=== PATIENT | male | born 1970 | race Caucasian/White ===

== ENCOUNTER → 2016-11-30 | Outpatient (CLI) | payer BC ==
--- NOTE | 2016-11-30 12:46 | FL ---
Barium swallow HISTORY: Dysphagia Patient was given high density barium to drink. Swallowing mechanism is normal. There is no extrinsic or intrinsic esophageal lesion. Findings of fel ine esophagus are noted. There is no obstruction to flow. No gastroesophageal reflux or hiatal hernia . IMPRESSION: Unremarkable exam, feline esophagus
== END | disposition home or self-care (01) ==
LOC: RADFLWHC 10:43
PROVIDERS: ATTEND Family Medicine
DX: R13.10 Dysphagia, unspecified (principal)
CPT/HCPCS: 74220

== ENCOUNTER 2019-06-03 10:59 | Day surgery (SDC) | payer BC ==
[2019-05-30 08:55] VITALS: BMI 36.1
[~2019-06-03 10:59] MED LIST: LACTATED RINGERS 1,000 ML IV SCH; LIDOCAINE 1% 20 ML VIAL (10MG/ML) FOR IV START INTRADERMA PRN
[2019-06-03 11:15] VITALS: TEMP 97.8
[2019-06-03] MEDS ORDERED: LACTATED RINGERS 1,000 ML IV ONE (11:17)
[2019-06-03] MEDS ORDERED: PROPOFOL 10 MG/ML 20 ML VIAL IV ONE (11:38)
[2019-06-03] MEDS ORDERED: LIDOCAINE 1% INJ 10MG/ML (20 ML MDV) ONE (11:38)
--- NOTE | 2019-06-03 12:50 | P.PCN ---
Date of Procedure: 06/03/19 Description of Procedure: Brief history: Patient is a pleasant scheduled for an elective upper endoscopy as well as colonoscopy as a part of evaluation of symptoms of melena, hematochezia and GI bleed. He reports taking a lot of Motrin due to knee pain which time he had noticed dark-colored stool. He also reports intermittent episodes of mucus discharge as well as bright red blood per rectum. No prior colonoscopy reported. Procedure performed: Esophagogastroduodenoscopy with biopsy Colonoscopy with polypectomy Estimated blood loss: Minimal. Preoperative diagnosis: Melena, esophageal dysphagia, hematochezia, GI bleeding, no prior colonoscopy Anesthesia: [facility] [place] Procedure: After informed consent was obtained from the patient was brought into the endoscopy unit and IV sedation was administered by anesthesia under continuous monitoring. Initially upper endoscopy was done. The Olympus GF 190 video endoscope was inserted inserted into the mouth and esophagus intubated without any difficulty and was gradually advanced into the stomach and duodenum and carefully examined. The bulb and second part of the duodenum appeared normal, except for some mild scattered erythema suggestive of mild duodenitis with biopsies taken. The scope was then withdrawn into the stomach adequately in sufflated with air and upon careful examination the antrum and body, cardia and fundus appeared normal, except for some mild punctate erythema in the antrum and body suggestive of mild gastritis with biopsies taken. The scope was then withdrawn into the esophagus. The GE junction was located at 36 cm to the incisors. It appeared regular with no erythema erosions or ulcerations. Rest of the esophagus appeared normal, with mid esophageal biopsies taken due to dysphagia. Patient tolerated the procedure well. At this time the patient continued to remain sedation. Initial digital rectal examination was normal. Olympus CF 190 video colonoscope was then inserted into the rectum and gradually advanced to the cecum without any difficulty. Careful examination was performed as the scope was gradually being withdrawn. The prep was good. The cecum, ascending colon, transverse colon, descending colon, sigmoid colon and rectum appeared normal. An 8 mm sessile descending colon polyp was seen and removed with hot snare polypectomy. A large 13 mm sigmoid colon polyp was removed with hot snare polypectomy in piecemeal fashion. Retroflexion was performed in the rectum and no lesions were noted. Patient tolerated the procedure well. Impression: 1. Mild gastritis antrum and body, biopsied. Mild duodenitis biopsied. Mid esophageal biopsies. 2. 2 large polyp removed from the descending colon and sigmoid colon with hot snare polypectomy, sigmoid colon polyp was larger and removed in piecemeal fashion. Recommendations: Findings of this examination were discussed with the patient as well as his . Okay to resume diet. Await pathology from polypectomies. Anticipate repeat colonoscopy in one year due to piecemeal resection of polyps.
[2019-06-03 13:10] VITALS: BP 120/75; PULSE 66; RESP 16
== END 2019-06-03 13:30 | disposition home or self-care (01) ==
LOC: ORWHC2ENDO 10:59
PROVIDERS: ATTEND Internal Medicine
DX: D12.4 Benign neoplasm of descending colon (principal); D12.5 Benign neoplasm of sigmoid colon; K29.70 Gastritis, unspecified, without bleeding; K29.80 Duodenitis without bleeding; K29.50 Unspecified chronic gastritis without bleeding; Z79.1 Long term (current) use of non-steroidal anti-inflammatories (NSAID); Z88.5 Allergy status to narcotic agent; Z79.899 Other long term (current) drug therapy
CPT/HCPCS: 88305; 88312; 45385; 43239; J2001; J2704

== ENCOUNTER 2021-06-30 16:02 | Emergency (ER) | payer BC ==
[2021-06-30 16:10] VITALS: TEMP 97.7
[2021-06-30 16:39] LABS: Basophils # (A) 0.1 k/uL (0-0.2); Basophils % (A) 1 %; Eosinophils # (A) 0.1 k/uL (0-0.7); Eosinophils % (A) 2 %; HCT 46.8 % (39.0-53.0); HGB 16.5 gm/dL (13.0-17.5); Hyperchromasia Slight; Lymphocytes # (A) 1.5 k/uL (1.0-4.8); Lymphocytes % (A) 22 %; MCH 31.9 pg (25.0-35.0); MCHC 35.2 g/dL (31.0-37.0); MCV 90.7 fL (80.0-100.0); Mean Platelet Volume 8.5; Monocytes # (A) 0.3 k/uL (0-1.0); Monocytes % (A) 4 %; Neutrophils # (A) 4.5 k/uL (1.3-7.7); Neutrophils % (A) 68 %; Platelet Count 167 k/uL (150-450); RBC 5.16 m/uL (4.30-5.90); RDW 13.4 % (11.5-15.5); WBC 6.5 k/uL (3.8-10.6)
[2021-06-30 16:48] LABS: Partial Thromboplastin Time 25.4 sec (22.0-30.0); Prothrombin Time 10.3 sec (9.0-12.0)
--- NOTE | 2021-06-30 16:50 | XR ---
EXAMINATION TYPE: XR chest 2V DATE OF EXAM: 06/30/2021 COMPARISON: NONE HISTORY: 51 years Male. STUDY INDICATION GIVEN: Chest Pain . TECHNIQUE: Frontal lateral chest radiographs IMPRESSION: Patchy opacities in the right lower lobe concerning for pneumonia. No pneumothorax or pleural effusion. Normal cardiac mediastinal silhouette. No acute osseous abnormality. Radiopaque densities over the left axillary region external to the patient. Clinical correlation kong mmended
[2021-06-30 16:51] LABS: ALT 18 U/L (4-49); AST 28 U/L (17-59); African American GFR (CKD) >90 (>60 ml/min/1.73 sqM); Albumin 4.5 g/dL (3.5-5.0); Alkaline Phosphatase 63 U/L (38-126); Anion Gap 10 mmol/L; Blood Urea Nitrogen 23 mg/dL (9-20); Calcium 9.4 mg/dL (8.4-10.2); Carbon Dioxide 22 mmol/L (22-30); Chloride 106 mmol/L (98-107); Glucose 134 mg/dL (74-99); Magnesium 2.1 mg/dL (1.6-2.3); Non-African American GFR(CKD) >90 (>60 ml/min/1.73 sqM); Potassium 3.8 mmol/L (3.5-5.1); Sodium 138 mmol/L (137-145); Total Bilirubin 0.9 mg/dL (0.2-1.3); Total Protein 7.5 g/dL (6.3-8.2)
[2021-06-30] MEDS ORDERED: KETOROLAC 15 MG/ML 1 ML VIAL IM STA (17:21)
[2021-06-30] MEDS ORDERED: ASPIRIN 81 MG PO STA (17:21)
--- NOTE | 2021-06-30 18:32 | ED ---
General Adult HPI - General Chief complaint: Chest Pain Stated complaint: Chest Pain/Lightheaded Time Seen by Provider: 06/30/21 16:56 Source: family Mode of arrival: ambulatory Limitations: no limitations - History of Present Illness Initial comments: Patient is a 51-year-old male with past medical history remarkable for hypertension who presents emergency Department complaining of chest pain. Patient was evaluated when he was placed in a room. Workup was initially started by nursing staff. He describes the chest pain as a pressure-like sensation substernally. It comes and goes but he had an episode earlier when she did become mildly diaphoretic at work. He also endorses some mild lightheadedness. He wanted to be evaluated after calling his doctor. He denies any current shortness of breath, abdominal pain, nausea, vomiting. He does en dorse improvement in the chest pressure, however it is still present. Denies any lightheadedness currently, weakness, numbness. He was vaccinated for COVID- 19. He has no other acute complaints at this time. The chest pressure does not radiate. No history of blood clots and patient is not on blood thinners. - Related Data Home Medications Medication Instructions Recorded Confirmed Losartan Potassium 100 mg PO HS@1800 05/30/19 06/30/21 ALPRAZolam [Xanax] 0.5 mg PO HS PRN 06/30/21 06/30/21 Metoprolol Tartrate [Lopressor] 50 mg PO HS@1800 06/30/21 06/30/21 Allergies Allergy/AdvReac Type Severity Reaction Status Date / Time lisinopril AdvReac Cough Verified 06/30/21 17:22 morphine AdvReac Itching Verified 06/30/21 17:22 Review of Systems ROS Statement: Those systems with pertinent positive or pertinent negative responses have been documented in the HPI. Review of Systems: CONST: Denies fever EYES: Denies blurry vision ENT: Denies nasal congestion C/V: Endorses chest pain RESP: Denies shortness of breath GI: Denies abdominal pain : Denies dysuria SKIN: Denies rash. MSK: Denies joint pain. NEURO: Denies headache ROS Other: All systems not noted in ROS Statement are negative. Past Medical History Past Medical History: Hypertension, Osteoarthritis (OA) Additional Past Medical History / Comment(s): feels like food gets stuck in my throat and pos occult stool and cologuard History of Any Multi-Drug Resistant Organisms: None Reported Past Surgical History: Orthopedic Surgery Additional Past Surgical History / Comment(s): lt meniscus arthroscopy repair,repair of fluid bulging back lt eye,lt rot cuff repair,rt foot ORIF Past Anesthesia/Blood Transfusion Reactions: No Reported Reaction Smoking Status: Never smoker Past Alcohol Use History: Occasional Past Drug Use History: None Reported - Past Family History Mother Family Medical History: No Reported History Father Additional Family Medical History / Comment(s): lump removed from breast General Exam - General Exam Comments Initial Comments: General: Appears in no acute distress. HEAD: Normal with no signs of head trauma. EYES: PERRLA, EOMI, conjunctiva normal, no discharge. ENT: Hearing grossly intact, normal oropharynx. RESPIRATORY: Clear breath sounds bilaterally. No wheezes, rales, or rhonchi. C/V: Regular rate and rhythm. S1 and S2 auscultated, no edema, peripheral pulses 2+ and intact throughout. Pain is nonreproducible on palpation. ABD: Abd is soft, nontender, nondistended EXT: Normal range of motion, no obvious deformity SKIN: No rashes or lesions observed on exposed skin. NEURO: Alert and oriented x 4. Cranial nerves II-XII intact. No focal sensory or strength deficits. Limitations: no limitations Course Vital Signs 06/30/21 06/30/21 16:07 18:57 Temperature 97.7 F Pulse Rate 101 H 71 Respiratory 19 18 Rate Blood Pressure 128/81 121/92 O2 Sat by Pulse 98 96 Oximetry Medical Decision Making - Medical Decision Making Based on the patient's presentation and physical exam, I'm concerned for possible cardiac etiology for his current chest pain. Therefore we will obtain a cardiac workup including troponin, EKG, chest x-ray. He'll be sent directly treated with aspirin as well as Toradol. Due to the atypical nature the pain, we'll also obtain a d-dimer 12 possibility of pulmonary embolism. His well score for PE is low. He was in agreement with this plan. Patient's laboratory studies were initially drawn by triage and were back prior to me evaluating the patient. EKG showed no signs of acute ischemia. Chest x- ray shows no acute cardiopulmonary process and the possibility of a right lower lobe pneumonia versus atelectasis with clinical correlation. I discussed this with the patient and he is having no symptoms including denying any dyspnea, cough, fevers, chills. We therefore agreed that we'll not start antibiotics as he does not appear to have a pneumonia clinically. I discussed with them on my evaluation that I would like to obtain additional troponin which will therefore be greater than 4 hours after onset of symptoms. D-dimer was also be obtained. He was in agreement this plan. D-dimer was within normal limits. Second troponin was also negative. On reevaluation, patient's chest pain is completely resolved. He would like to go home. Patient's heart score is low at 2. I do believe it is safe to discharge the patient home. . I instructed the patient to follow up with their PCP in the next 3 days. I r ecommended cardiology follow-up as well, and he will follow up with his known training lead. I explained that the patient should return to the emergency department if they experience any worsening symptoms. Strict return precautions were discussed with the patient. The patient expressed understanding of these instructions. I answered all questions that the patient had. The patient was discharged home in good condition with their prescriptions and follow up information. - Lab Data Result diagrams: 06/30/21 16:11 06/30/21 16:11 Lab Results 06/30/21 06/30/21 06/30/21 Range/Units 16:11 16:11 16:11 WBC 6.5 (3.8-10.6) k/uL RBC 5.16 (4.30-5.90) m/uL Hgb 16.5 (13.0-17.5) gm/dL Hct 46.8 (39.0-53.0) % MCV 90.7 (80.0-100.0) fL MCH 31.9 (25.0-35.0) pg MCHC 35.2 (31.0-37.0) g/dL RDW 13.4 (11.5-15.5) % Plt Count 167 (150-450) k/uL MPV 8.5 Neutrophils % 68 % Lymphocytes % 22 % Monocytes % 4 % Eosinophils % 2 % Basophils % 1 % Neutrophils # 4.5 (1.3-7.7) k/uL Lymphocytes # 1.5 (1.0-4.8) k/uL Monocytes # 0.3 (0-1.0) k/uL Eosinophils # 0.1 (0-0.7) k/uL Basophils # 0.1 (0-0.2) k/uL Hyperchromasia Slight PT 10.3 (9.0-12.0) sec INR 1.0 (<1.2) APTT 25.4 (22.0-30.0) sec D-Dimer (<0.60) mg/L FEU Sodium 138 (137-145) mmol/L Potassium 3.8 (3.5-5.1) mmol/L Chloride 106 (98-107) mmol/L Carbon Dioxide 22 (22-30) mmol/L Anion Gap 10 mmol/L BUN 23 H (9-20) mg/dL Creatinine 0.93 (0.66-1.25) mg/dL Est GFR (CKD-EPI)AfAm >90 (>60 ml/min/1.73 sqM) Est GFR (CKD-EPI)NonAf >90 (>60 ml/min/1.73 sqM) Glucose 134 H (74-99) mg/dL Calcium 9.4 (8.4-10.2) mg/dL Magnesium 2.1 (1.6-2.3) mg/dL Total Bilirubin 0.9 (0.2-1.3) mg/dL AST 28 (17-59) U/L ALT 18 (4-49) U/L Alkaline Phosphatase 63 (38-126) U/L Troponin I (0.000-0.034) ng/mL Total Protein 7.5 (6.3-8.2) g/dL Albumin 4.5 (3.5-5.0) g/dL 06/30/21 06/30/21 06/30/21 Range/Units 16:11 16:11 17:17 WBC (3.8-10.6) k/uL RBC (4.30-5.90) m/uL Hgb (13.0-17.5) gm/dL Hct (39.0-53.0) % MCV (80.0-100.0) fL MCH (25.0-35.0) pg MCHC (31.0-37.0) g/dL RDW (11.5-15.5) % Plt Count (150-450) k/uL MPV Neutrophils % % Lymphocytes % % Monocytes % % Eosinophils % % Basophils % % Neutrophils # (1.3-7.7) k/uL Lymphocytes # (1.0-4.8) k/uL Monocytes # (0-1.0) k/uL Eosinophils # (0-0.7) k/uL Basophils # (0-0.2) k/uL Hyperchromasia PT (9.0-12.0) sec INR (<1.2) APTT (22.0-30.0) sec D-Dimer 0.37 (<0.60) mg/L FEU Sodium (137-145) mmol/L Potassium (3.5-5.1) mmol/L Chloride (98-107) mmol/L Carbon Dioxide (22-30) mmol/L Anion Gap mmol/L BUN (9-20) mg/dL Creatinine (0.66-1.25) mg/dL Est GFR (CKD-EPI)AfAm (>60 ml/min/1.73 sqM) Est GFR (CKD-EPI)NonAf (>60 ml/min/1.73 sqM) Glucose (74-99) mg/dL Calcium (8.4-10.2) mg/dL Magnesium (1.6-2.3) mg/dL Total Bilirubin (0.2-1.3) mg/dL AST (17-59) U/L ALT (4-49) U/L Alkaline Phosphatase (38-126) U/L Troponin I <0.012 <0.012 (0.000-0.034) ng/mL Total Protein (6.3-8.2) g/dL Albumin (3.5-5.0) g/dL - EKG Data -: EKG Interpreted by Me EKG Comments: 12-lead Electrocardiogram Interpretation Note EKG was reviewed and interpreted by myself. 12-lead ECG performed at 1611 is interpreted by me as revealing normal sinus rhythm at a rate of 86 beats per minute. [place] is normal. [place] interval 160 ms, QRS duration is 82 ms, QTc is 411 ms.. There were no ST or T wave abnormalities to suggest myocardial ischemia or injury. R wave progression across the precordium was satisfactory. By my interpretation this EKG is non-diagnostic for acute ischemia. Disposition Clinical Impression: Chest pain of unknown etiology Disposition: HOME SELF-CARE Condition: Good Instructions (If sedation given, give patient instructions): Chest Pain (ED) Is patient prescribed a controlled substance at d/c from ED?: No Referrals: Ajay Greenberg MD [Primary Care Provider] - 1-2 days
[2021-06-30 18:58] VITALS: BP 121/92; PULSE 71; RESP 18
== END 2021-06-30 18:57 | disposition home or self-care (01) ==
LOC: EC 16:02
DX: R07.89 Other chest pain (principal); R42 Dizziness and giddiness; I10 Essential (primary) hypertension; Z88.8 Allergy status to other drugs, medicaments and biological substances; Z88.5 Allergy status to narcotic agent
CPT/HCPCS: 36415; 93005; 85379; 80053; 83735; 84484; 85025; 85610; 85730; 71046; 96372; 99285; J1885

== ENCOUNTER → 2021-07-26 | Outpatient (CLI) | payer BC ==
--- NOTE | 2021-07-26 13:23 | P.STRESS ---
- Stress Test Note Stress Test Results/Findings: Exam Performed: stress test Exam Date: 07/26/21 Reason for Exam: Chest Pain Height: 5 ft 7 in Weight: 104.326 kg Protocol: Manuel Stage: 3 Duration of Exercise: 9:19 Resting Heart Rate: 83 Resting Blood Pressure: 136/98 Maximum Achieved Heart Rate: 150 Maximum Achieved Blood Pressure: 178/92 85% PMHR: 142 100% PMHR: 167 METS: 10.7 Technologist Comment: Stress Test Results/Findings: Patient underwent exercise stress EKG with a Manuel protocol treadmill stress test. Patient exercised into Stage 3 for a total of 9 minutes and 19 seconds reaching a total of 10.7 METS. Patient's maximum heart rate was 150 which represented 90 % age-predicted maximum heart rate. Stress EKG findings: At baseline patient's EKG showed normal sinus rhythm, normal axis, no significant ST or T wave abnormalities. At peak exercise, EKG showed nonspecific 0.[address] depressions in the inferior and lateral leads which is nondiagnostic. Conclusions: 1. Normal EKG response to exercise without evidence of inducible ischemia. 2. Good exercise capacity.
== END | disposition home or self-care (01) ==
LOC: RADNMMAIN 08:24
PROVIDERS: ATTEND Family Medicine
DX: R07.9 Chest pain, unspecified (principal); J18.9 Pneumonia, unspecified organism
CPT/HCPCS: 93017

== ENCOUNTER → 2021-08-04 | Outpatient (CLI) | payer BC ==
--- NOTE | 2021-08-04 08:37 | US ---
EXAMINATION TYPE: US carotid duplex BILAT DATE OF EXAM: 08/04/2021 COMPARISON: NONE CLINICAL HISTORY: 51-year-old male R42 lightheadedness. Intermittent lightheadedness x 1 month TECHNIQUE: Carotid duplex ultrasound examination. Indirect Doppler criteria was utilized. FINDINGS: EXAM MEASUREMENTS: RIGHT: Peak Systolic Velocity (PSV) cm/sec ----- Right CCA: 82.0 ----- Right ICA: 65.7 ----- Right ECA: 50.8 ICA/CCA ratio: 0.8 RIGHT: End Diastole cm/sec ----- Right CCA: 30.3 ----- Right ICA: 34.6 ----- Right ECA: 11.5 LEFT: Peak Systolic Velocity (PSV) cm/sec ----- Left CCA: 63.4 ----- Left ICA: 67.5 ----- Left ECA: 69.9 ICA/CCA ratio: 1.1 LEFT: End Diastole cm/sec ----- Left CCA: 23.2 ----- Left ICA: 36.6 ----- Left ECA: 9.4 VERTEBRALS (direction of flow): Right Vertebral: Antegrade Left Vertebral: Antegrade Rhythm: Normal [employer] notes: No significant stenosis IMPRESSION: No hemodynamically significant internal carotid artery stenosis on either side. Criteria for Assigning % of Stenosis / Diameter reduction (Estimation based on the indirect measurements of the internal carotid artery velocities (ICA PSV). 1. Normal (no stenosis)=ICA PSV < 125 cm/s: ratio < 2.0: ICA EDV<40 cm/s. 2. Less than 50% stenosis=ICA PSV < 125 cm/s: ratio < 2.0: ICA EDV<40 cm/s. 3. 50 to 69% stenosis=ICA PSV of 125 to 230 cm/s: ration 2.0 ? 4.0: ICA EDV 40-100 cm/s. 4. Greater than 70% stenosis to near occlusion= ICA PSV > 230 cm/s: ratio > 4.0: ICA EDV > 100 cm/s. 5. Near occlusion= ICA PSV velocities may be low or undetectable: variable ratio and ICA EDV. 6. Total occlusion=unable to detect flow.
== END | disposition home or self-care (01) ==
LOC: RADUSWWP 06:42
PROVIDERS: ATTEND Family Medicine
DX: R42 Dizziness and giddiness (principal)
CPT/HCPCS: 93225; 93226; 93880

== ENCOUNTER 2021-12-31 09:01 | Day surgery (SDC) | payer BC ==
[2021-12-29 10:00] VITALS: BMI 34.4
[~2021-12-31 09:01] MED LIST changes: -LIDOCAINE 1% 20 ML VIAL (10MG/ML) FOR IV START INTRADERMA PRN
[2021-12-31] MEDS ORDERED: PROPOFOL 10 MG/ML 20 ML VIAL IV ONE (10:45)
--- NOTE | 2021-12-31 11:11 | P.PCN ---
Date of Procedure: 12/31/21 Procedure(s) Performed: BRIEF HISTORY: Patient is a 51-year-old pleasant male scheduled for an elective colonoscopy as a part of evaluation of prior history of colon polyps. Last colonoscopy was 3 years ago and was noted to have tubular adenoma PROCEDURE PERFORMED: Colonoscopy. PREOPERATIVE DIAGNOSIS: History of colon polyps. IV sedation per Anesthesia. PROCEDURE: After informed consent was obtained, the patient, was brought into the endoscopy unit. IV sedation was administered by Anesthesia under continuous monitoring. Digital rectal examination was normal. Initially the Olympus CF-160 flexible video colonoscope was then inserted in the rectum, gradually advanced into the cecum without any difficulty. Careful examination was performed as the scope was gradually being withdrawn. Ileocecal valve and the appendiceal orifice were visualized and appeared normal. Prep was excellent. Mucosa of the cecum, ascending colon, transverse colon, descending colon, sigmoid colon, and rectum appeared normal. Retroflexion was performed in the rectum and no lesions were seen. The patient tolerated the procedure well. IMPRESSION: Normal-appearing colon from rectum to cecum with no evidence of colorectal neoplasia . RECOMMENDATIONS: Findings of this examination were discussed with the patient .as well as his family. He was advised to have a repeat colonoscopy in 5 years.
[2021-12-31 12:20] VITALS: BP 108/77; PULSE 63; RESP 14
== END 2021-12-31 11:50 | disposition home or self-care (01) ==
LOC: ORWHC2ENDO 09:01
PROVIDERS: ATTEND Internal Medicine Gastroenterology
DX: Z12.11 Encounter for screening for malignant neoplasm of colon (principal); Z86.010 Personal history of colon polyps; I10 Essential (primary) hypertension; Z79.899 Other long term (current) drug therapy
CPT/HCPCS: J2704; G0105; 45378

== ENCOUNTER → 2024-11-27 | Outpatient (CLI) | payer BC ==
--- NOTE | 2024-11-27 10:39 | FL ---
EXAMINATION TYPE: FL barium swallow DATE OF EXAM: 11/27/2024 COMPARISON: Prior esophagram November 30, 2016 CLINICAL INDICATION: Male, 54 years old with history of R13.10 DYSPHAGIA, UNSPECIFIED, worsening dysp hagia mid chest over several years. TECHNIQUE: A double contrast esophagram is performed utilizing air and barium. A total of 51 second s of fluoroscopic time was utilized during procedure and 70 images obtained. Total DAP = 1910.65. FINDINGS: The esophagus shows adequate motility and emptying into the stomach. No evidence of fixed hiatal hernia or stricture noted. At the mid to the distal esophageal level over a moderate length th ere is irregularity in the mucosa with a nodular type appearance almost shaggy type esophagus. No sig nificant gastroesophageal reflux was seen during real time performance of this study. IMPRESSION: Mucosal abnormalities suspected mid to distal esophagus. An atypical esophagitis needs t o be considered. Consider endoscopy evaluation to better evaluate and characterize. [facility], , 11/27/2024 10:36 AM
== END | disposition home or self-care (01) ==
LOC: RADFLMAIN 09:35
PROVIDERS: ATTEND Family Medicine
DX: R13.10 Dysphagia, unspecified (principal)
CPT/HCPCS: 74220

== ENCOUNTER → 2025-02-14 | Outpatient (CLI) | payer BC ==
--- NOTE | 2025-02-14 08:44 | MR ---
EXAMINATION TYPE: MR Prostate wo/w con DATE OF EXAM: 02/14/2025 8:13 AM COMPARISON: None. CLINICAL INDICATION: Male, 54 years old with history of R97.20 elevated PSA; Elevated PSA TECHNIQUE: Multi-planar, multi-sequence imaging of the pelvis is performed prior to and following the uncomplicated administration of bolus intravenous gadolinium. IV Contrast: 11 mL Gadobutrol Interpretive Criteria: PI-RADS v2.1 SERUM PSA: 01/2024=3.95 10/2024=4.880 SURGICAL PATHOLOGY: No data available. FINDINGS: Prostatic dimensions: 4.9 x 5.7 x 4.5 cm. Ellipsoid Volume:65.81 (PSA density=0.07 ng/mL/mL) CENTRAL GLAND (Central and Transition Zones/CZ+TZ): Multiple bilateral, heterogenous appearing hypertrophic stromal nodules, without suspicious lesion. M edian lobe hypertrophy with protrusion into the base of the bladder. (PI-RADS 2) PERIPHERAL ZONE (PZ): Anterior left BPH nodule which is extruded towards the apex peripheral zone anteriorly Bilateral line ar, indistinct wedgelike areas of low ADC, and low T2 signal, No evidence of masslike abnormality, or localized perfusional hypervascularity, to further suggest a focus of clinically significant prostat e cancer. (PI-RADS 2) SEMINAL VESICLES (SV): Symmetric and unremarkable. PERIPROSTATIC TISSUES: Unremarkable. LYMPH NODES: No enlarged pelvic lymph node. REMAINING PELVIS: Bladder wall is within normal limits given distention. No abnormal free or organized intrapelvic fluid collection. No pathologic bowel dilation or mural thickening. No hernia visualized OSSEOUS STRUCTURES: No suspicious osseous abnormality. IMPRESSION: 1. No specific features for high-risk prostate cancer. Maximum PI-RADS score: 2. 2. Moderate BPH, estimated gland volume 65.81 (PSA density=0.07 ng/mL/mL). 3. No suspicious osseous lesion. No lymphadenopathy. No evidence of prostate adenocarcinoma involving the periprostatic tissues. [facility], , 02/14/2025 8:42 AM
== END | disposition home or self-care (01) ==
LOC: RADMRIMAIN 05:42
PROVIDERS: ATTEND Urology
DX: N40.0 Benign prostatic hyperplasia without lower urinary tract symptoms (principal); R97.20 Elevated prostate specific antigen [PSA]
CPT/HCPCS: 72197; A9585

== ENCOUNTER 2025-03-12 10:46 | Day surgery (SDC) | payer BC ==
[2025-03-10 15:32] VITALS: BMI 37.7
[2025-03-12 11:06] VITALS: TEMP 97.2
[2025-03-12] MEDS: LACTATED RINGERS 1,000 ML IV SCH (11:13)
[2025-03-12] MEDS: IV FLUID CONTINUATION 1,000 ML IV ONE (11:13)
[2025-03-12] MEDS ORDERED: LIDOCAINE 1% INJ 10MG/ML (20 ML MDV) ONE (12:34)
[2025-03-12] MEDS ORDERED: PROPOFOL 10 MG/ML 20 ML VIAL IV ONE (12:34)
--- NOTE | 2025-03-12 12:49 | P.PCN ---
Date of Procedure: 03/12/25 Procedure(s) Performed: BRIEF HISTORY: Patient is a 54-year-old, pleasant, white man scheduled for an upper endoscopy as a part of evaluation of progressive dysphagia to solids and liquids for the last several years duration. Patient does admit to getting worse with occasional choking episodes and bouts of regurgitation.. PROCEDURE PERFORMED: Esophagogastroduodenoscopy with balloon dilation and biopsy. PREOPERATIVE DIAGNOSIS: Dysphagia to solids and liquids of several years. IV sedation per anesthesia. PROCEDURE: After informed consent was obtained, the patient was brought into the endoscopy unit. IV sedation was administered by Anesthesia under continuous monitoring. Initially the Olympus GIF-140 video endoscope was inserted into the mouth. Esophagus intubated without any difficulty. It was gradually advanced into the stomach and duodenum and carefully examined. The bulb and the second part of the duodenum appeared normal. The scope at this time was withdrawn to the stomach, adequately insufflated with air, and upon careful examination, mucosa of the antrum, body, cardia and the fundus appeared normal. The scope was then withdrawn into the esophagus. Small hiatal hernia noted. The GE junction was located at 41 cm from the incisors. There was a small hiatal hernia noted. Distal esophageal Schatzki's ring identified that was dilated using 20 mm TTS balloon for 20 seconds. There was brisk oozing identified at the site of mucosal tear and hence further dilation was not performed. The mucosa of the mid and distal esophagus had thickened esophageal folds with somewhat dilated appearing esophagus and multiple biopsies were done to evaluate for eosinophilic esophagitis. The proximal esophagus appeared normal. Also there is a couple of erosions noted in the distal esophagus consistent with LA grade B reflux esophagitis. And the patient tolerated the procedure well. IMPRESSION: 1. Distal esophageal Schatzki's ring status post balloon dilation using 20 mm TTS balloon for 20 seconds. 2. Thickened esophageal folds in the mid and distal esophagus with slightly d ilated appearing esophagus status post multiple biopsies to rule out eosinophilic esophagitis. 3. Linear erosions in the distal esophagus consistent with LA grade B reflux esophagitis. RECOMMENDATIONS: The findings of this examination were discussed with the patient as well as his family. He was advised to remain on clear liquids for 2 hours.. Follow-up in the office in 2 weeks. Start on omeprazole 40 mg daily and follow antireflux measures..
[2025-03-12 13:41] VITALS: BP 127/74; PULSE 74; RESP 17
== END 2025-03-12 13:36 | disposition home or self-care (01) ==
LOC: ORWHC2ENDO 10:46
PROVIDERS: ATTEND Internal Medicine Gastroenterology
DX: K22.2 Esophageal obstruction (principal); D72.10 Eosinophilia, unspecified; I10 Essential (primary) hypertension; Z89.232 Acquired absence of left shoulder; Z89.431 Acquired absence of right foot; Z89.522 Acquired absence of left knee; Z88.5 Allergy status to narcotic agent; Z88.8 Allergy status to other drugs, medicaments and biological substances; Z79.899 Other long term (current) drug therapy
CPT/HCPCS: 88305; 43239; 43249; J2003; J2704; C1726